=== PATIENT | male | born 1990 | race Caucasian/White ===

== ENCOUNTER 2018-08-23 22:45 | Emergency (ER) | payer BC, SELFPAY ==
[2018-08-23] MEDS ORDERED: Lidocaine 1% (PF) 30 ML VIAL ONE (23:15)
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
[2018-08-23] MEDS ORDERED: traMADol HCl 50 MG TAB ONE (23:59)
[2018-08-23] MEDS ORDERED: Ondansetron ODT 4 MG TAB ONE (23:59)
[2018-08-24] MEDS ORDERED: Bacitracin Zinc 1 Packet ONE (00:28)
[2018-08-24] MEDS ORDERED: Amoxicillin/Potassium Clav 875 MG TAB ONE (00:44)
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
== END 2018-08-24 00:54 | disposition home or self-care (01) ==
LOC: NAV ERS 22:45
DX: S06.0X0A Concussion without loss of consciousness, initial encounter (principal); S02.32XA Fracture of orbital floor, left side, initial encounter for closed fracture; S01.112A Laceration without foreign body of left eyelid and periocular area, initial encounter; S01.412A Laceration without foreign body of left cheek and temporomandibular area, initial encounter; F41.9 Anxiety disorder, unspecified; F17.210 Nicotine dependence, cigarettes, uncomplicated; Y04.0XXA Assault by unarmed brawl or fight, initial encounter
CPT/HCPCS: 12013; 70450; 70486; J2001; Q0162

== ENCOUNTER 2018-09-05 17:15 | Emergency (ER) | payer BC | END 2018-09-05 17:35 | disposition home or self-care (01) | LOC: NAV ERS 17:15 | DX: S01.81XD Laceration without foreign body of other part of head, subsequent encounter (principal); F41.9 Anxiety disorder, unspecified; F17.210 Nicotine dependence, cigarettes, uncomplicated ==

== ENCOUNTER 2020-08-07 18:41 | Emergency (ER) | payer BC ==
[2020-08-07] MEDS ORDERED: Sodium Chloride 0.9% 1,000 ML ONE (18:54)
[2020-08-07] MEDS ORDERED: Ondansetron PF 4 MG/2 ML Vial ONE (18:54)
[2020-08-07 19:09] LABS: #Basophils 0.3 thou/uL (0.0-0.2); #Eosinphils 0.2 thou/uL (0.0-0.7); #Lymphocytes 5.4 thou/uL (1.20-3.40); #Monocytes 1.1 thou/uL (0.11-0.59); %Basophils 2.7 % (0.0-1.0); %Eosinophils 1.8 % (0.0-10.0); %Lymphocytes 48.8 % (21.0-51.0); %Monocytes 10.2 % (0.0-10.0); %Neutrophils 36.5 % (42.0-75.0); Hemoglobin 16.3 g/dL (14.0-18.0); Mean Corpuscular HGB CONC 32.5 g/dL (32.0-36.0); Mean Corpuscular Hemoglobin 28.2 pg (27.0-31.0); Platelet Count 466 thou/uL (130-400); RBC Distribution Width 12.1 % (11.5-14.5); Red Blood Cell (RBC) Count 5.78 mill/uL (4.70-6.10)
[2020-08-07 19:23] LABS: ALT (SGPT) 20 U/L (8-55); AST (SGOT) 24 U/L (5-34); Albumin 4.8 g/dL (3.5-5.0); Alkaline Phosphatase 69 U/L (40-110); Anion Gap 17 mmol/L (10-20); BUN (Urea Nitrogen) 23 mg/dL (8.9-20.6); Bilirubin, Total 0.5 mg/dL (0.2-1.2); Calc. Creatinine Clearance 0 mL/min (70-130); Calcium 9.8 mg/dL (7.8-10.44); Carbon Dioxide 23 mmol/L (22-29); Chloride 104 mmol/L (98-107); Globulin 2.5 g/dL (2.4-3.5); Glucose 102 mg/dL (70-105); Potassium 3.8 mmol/L (3.5-5.1); Protein, Total 7.3 g/dL (6.0-8.3); Sodium 140 mmol/L (136-145)
[2020-08-07 19:24] LABS: Acetaminophen Less than 6.0 mcg/mL (10.0-30.0); Alcohol Less than 10 mg/dL (Less than 10); Salicylate Less than 8.0 mg/dL (15.0-30.0)
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
[2020-08-07] MEDS ORDERED: traMADol HCl 50 MG TAB ONE (19:38)
[2020-08-07] MEDS ORDERED: Lidocaine 1% (PF) 30 ML VIAL ONE (19:38)
[2020-08-07] MEDS ORDERED: Bacitracin 1 PK ONE (19:56)
[2020-08-07 20:07] LABS: Bilirubin Negative (Negative); Blood, Urine Negative (Negative); Clarity Clear (Clear); Glucose, Urine (Dipstick) Negative (Negative); Ketone, Urine 15 mg/dL (Negative); Leukocyte Negative (Negative); Nitrite Negative (Negative); Protein, Urine (Dipstick) 30 mg/dL (Neg-Trace); Specific Gravity, Urine 1.028 (1.002-1.036); Urobilinogen 0.2 mg/dL (Less than 2)
[2020-08-07 20:12] LABS: Amphetamine Not Detected (NotDetected); Barbiturates Screen Not Detected (NotDetected); Benzodiazepine Screen Detected (NotDetected); Cocaine Metabolite Screen Not Detected (NotDetected); Medtox Control Line Valid? VALID (VALID); Methadone Not Detected (NotDetected); Methamphetamine Not Detected (NotDetected); Opiate Screen Not Detected (NotDetected); Oxycodone Screen Not Detected (NotDetected); Phencyclidine (PCP) Not Detected (NotDetected); THC/Cannabinoid Screen Detected (NotDetected); Tricyclic Screen Not Detected (NotDetected)
[2020-08-07 20:15] LABS: Mucous/LPF 3+ LPF (<2+); RBC/HPF 0-3 HPF (0-3); Squamous Epithelial 0-3 HPF (0-3); WBC/HPF 0-3 HPF (0-3)
[2020-08-07] MEDS ORDERED: Cephalexin 250 MG CAP ONE (21:28)
== END 2020-08-07 21:56 | disposition home or self-care (01) ==
LOC: NAV ERS 18:41
DX: S91.312A Laceration without foreign body, left foot, initial encounter (principal); S90.412A Abrasion, left great toe, initial encounter; F17.210 Nicotine dependence, cigarettes, uncomplicated; V86.56XA Driver of dirt bike or motor/cross bike injured in nontraffic accident, initial encounter
CPT/HCPCS: 12002; 80053; 80306; 80307; 81003; 81015; 85025; 96374; J2001; J2405; J7050

== ENCOUNTER 2020-10-06 20:37 | Emergency (ER) | payer OTHER, BC ==
[2020-10-06] MEDS ORDERED: Lidocaine 1% (PF) 30 ML VIAL ONE (20:55)
[2020-10-06] MEDS ORDERED: Bacitracin 1 PK ONE (21:25)
== END 2020-10-06 22:47 | disposition home or self-care (01) ==
LOC: NAV ERS 20:37
DX: S51.811A Laceration without foreign body of right forearm, initial encounter (principal); F17.210 Nicotine dependence, cigarettes, uncomplicated; W54.0XXA Bitten by dog, initial encounter
CPT/HCPCS: 12002; J2001